=== PATIENT | female | born 1955 | race Two or more races ===

== ENCOUNTER 2024-08-21 11:57 | Emergency (ER) | payer SELFPAY ==
--- NOTE | 2024-08-21 12:18 | PC.NURSE ---
PT LEFT BEFORE BEING SEEN BY MEDICAL PROVIDER.
--- NOTE | 2024-08-21 17:56 | PD.EDRME ---
Rapid Medical Screening Exam RME Arrival date/time: 08/21/24 11:57 Chief Complaint: Abdominal Pain Time Seen by Provider: 08/21/24 12:14
== END 2024-08-21 12:18 | disposition left against medical advice (07) ==
LOC: SERX 12:30
PROVIDERS: Emergency Provider Emergency Medicine
DX: R10.9 Unspecified abdominal pain (principal); Z53.21 Procedure and treatment not carried out due to patient leaving prior to being seen by health care provider

== ENCOUNTER 2024-08-21 12:43 | Emergency (ER) | payer BC, SELFPAY ==
[2024-08-21 13:20] VITALS: BP 175/86; PULSE 67; RESP 20; TEMP 37.2; O2SAT 97
--- NOTE | 2024-08-21 13:21 | EDNOTE_ITS ---
<Statement entered by Olive Demarco MD - 08/22/24 14:50> As co-signing physician, I was present and available for consult prn. I concur with the plan and care as documented by the midlevel provider. ED Abdominal Pain RME/HPI General Chief Complaint: Abdominal Pain Stated complaint: ABD PAIN Time seen by provider: 08/21/24 13:15 Arrival date/time: 08/21/24 12:43 RME / HPI RME / HPI narrative: 69-year-old female patient came in for evaluation regarding left lower quadrant pain. Onset of symptoms for the last 3 days as left lower quadrant pain, described as dull ache, severity moderate. Patient denies any vomiting denies any diarrhea denies any constipation last bowel vomit today. Patient denies any fever also. Denies any other complaint. Abdominal surgery include exploratory laparotomy due to intestinal problem with she was young. Related Data Allergies Allergy/AdvReac Type Severity Reaction Status Date / Time acetaminophen (From Allergy Verified 08/21/24 11:59 Tylenol-Codeine) codeine (From Allergy Verified 08/21/24 11:59 Tylenol-Codeine) Review of Systems Review of Systems Narrative Review of Systems: Review of system reviewed and within normal limits except mentioned in HPI ED Exam Narrative Physical exam: VITAL SIGNS: Reviewed. GENERAL APPEARANCE: Alert and interactive, follows commands, no acute distress, HEAD AND FACE: Non-traumatic. ENT: PERRL, pink conjunctivitis, eyelid no trauma, Mucous membrane moist. NECK: Supple, nontender, no nuchal rigidity. CHEST: No tenderness, no crepitus, no paradoxical movement, no retractions. LUNGS: Clear, well ventilated, symmetric, no rales, no wheezing, no ronchi, no stridor, good breath sounds bilaterally. HEART: Regular rate, regular rhythm, no murmur, no gallops. ABDOMEN: Soft, positive bowel sounds, nondistended, no guarding, left lower quadrant tenderness,, no rebound, no masses, RECTAL: Deferred. GENITAL: Deferred. NEUROLOGICAL: Gross motor function intact sensory function intact, Appropriate for age. MUSCULOSKELETAL: low back nontender, full range of motion. EXTREMITIES: Nontender, full range of motion. SKIN: Color pink, dry, no rash, no lacerations, no abrasions, no contusions. LYMPHATICS: Deferred. Course Quality Measures none Orders Category Date Time Status CT Screening NOW Care 08/21/24 13:[address] abdomen pelvis wo con Stat Exams 08/21/24 15:56 Completed CBC Stat Lab 08/21/24 13:28 Completed Comprehensive Metabolic Panel Stat Lab 08/21/24 13:28 Completed Lipase Stat Lab 08/21/24 13:28 Completed Prothrombin Time with INR Stat Lab 08/21/24 13:28 Completed UA, C/S IF [Urinalysis, C/S if Indicated] Stat Lab 08/21/24 14:07 Completed Vital Signs Vital signs: Vital Signs Temperature 99.0 F 08/21/24 13:20 Pulse Rate 67 08/21/24 13:20 Respiratory Rate 20 08/21/24 13:20 Blood Pressure 175/86 H 08/21/24 13:20 Pulse Oximetry (%) 97 08/21/24 13:20 Oxygen Delivery Method Room Air 08/21/24 13:20 Abdominal Pain [facility] MDM Narrative MDM Narrative:: 69-year-old female patient came in for evaluation regarding left lower quadrant pain. Onset of symptoms for the last 3 days as left lower quadrant pain, described as dull ache, severity moderate. Patient denies any vomiting denies any diarrhea denies any constipation last bowel vomit today. Patient denies any fever also. Denies any other complaint. Abdominal surgery include exploratory laparotomy due to intestinal problem with she was young. Patient's workup today all came back normal. Including CT scan of the abdomen and pelvis. Results discussed with the patient and the family. Patient is prob ably having abdominal pas pain. Patient appears nontoxic and hemodynamically stable. Patient discharged home and instructed to follow-up with primary care provider in 24 to 48 hours. Instructed to return to the emergency department immediately if worsening of symptoms Patient data External records reviewed:: None Clinical information provided by:: none Social determinants that could affect healthcare access:: none Patient has the following chronic illnesses:: None How is presenting disease/condition affected by chronic disease/condition?: no chronic disease Evaluation data The following diagnostics were reviewed and interpreted by me:: lab results and radiology exam(s) Lab and/or radiology exams considered but not ordered:: None Interpretation Summary: See results in MDM Medications / Prescriptions Medications or Prescriptions considered but not ordered:: None Medication administrations:: None Consultations Consultation(s) initiated? (list below): No Consultation #1 (Physician, Specialty, Details): None Diagnosis Differential diagnosis abdominal pain: abdominal pain, constipation and small bowel obstruction Most likely diagnosis given after review of the tests above:: Abdominal pain Admission Indicated Admission indicated?: not indicated Admission Request Was there a request for admission?: No Disposition Plan Disposition Plan: Discharge Discharge Attestation Discharge Attestation: The patient and all family members were given an opportunity to ask questions and understood the discharge instructions. Discharge instructions specifically effects, indications for sooner follow up or return to the emergency department, and the expected course of current diagnosis. Patient condition: Stable Discharge Plan Plan Patient Disposition: HOME (Self Care) Disposition Comment: stable Prescriptions/Referrals Referrals: No Primary/Family,Physician [Primary Care Provider] - In 1 week Problem List Clinical Impression: Abdominal pain Patient/Caregiver Discharge Instructions Discharge Activity: activity as tolerated Education Materials: Abdominal Pain Additional Instructions: Thank you for the opportunity for serving you today. You are stable for discharged . You are advised to: Follow-up with your PCP in 1 to 2 days Return to ED for worsening of symptoms Increase oral fluids Increase fiber in the diet Print Language: [place] Islander Stand Alone Forms: Bhavna Award Info., Patient Portal Info Letter JOANNE/PAUL Supervising Physician JOANNE/PAUL Supervising Physician: MD Ella
[2024-08-21 13:43] LABS: Basophils # (Auto) 0.1 Thou/mm3 (0.0-0.2); Basophils % (Auto) 1 % (0-2.5); Eosinophils # (Auto) 0.4 Thou/mm3 (0.0-0.5); Eosinophils % (Auto) 4 % (0-10); Immature Granulocytes % (Auto) 0 % (0-0); Immature Granulocytes Auto 0.03 Thou/mm3 (0.00-0.00); Lymphocytes # (Auto) 4.2 Thou/mm3 (1.0-4.8); Lymphocytes % (Auto) 40 % (10-50); Mean Corpuscular HGB Conc 34.2 g/dl (31.0-37.0); Mean Corpuscular Volume 82 fL (80-100); Monocytes % (Auto) 9 % (0-12); Neutrophils # (Auto) 4.8 Thou/mm3 (1.8-7.7); Neutrophils % (Auto) 46 % (37-80); Nucleated Red Blood Cell % 0 /100 WBC (0); Platelet Count 260 Thou/mm3 (140-440); Red Blood Count 4.65 Miln/mm3 (4.00-5.20); White Blood Count 10.5 Thou/mm3 (3.6-11.0)
[2024-08-21 13:56] LABS: INR 0.9 (0.9-1.3); Prothrombin Time 10.4 Seconds (9.0-12.2)
[2024-08-21 14:00] LABS: Alanine Aminotransferase 13 U/L (10-49); Albumin, Serum 4.2 gm/dL (3.4-4.8); Albumin/Globulin Ratio 1.8 (1.2-2.2); Alkaline Phosphatase 100 U/L (46-116); Anion Gap 7 (7-16); Aspartate Amino Transferase 13 U/L (0-34); BUN/Creatinine Ratio 18 Ratio (12-20); Bilirubin,Total 0.5 mg/dL (0.3-1.2); Blood Urea Nitrogen 11 mg/dL (9-23); Calcium 9.2 mg/dL (8.3-10.6); Calcium (Corrected) 9.2 mg/dL (8.5-10.1); Carbon Dioxide 28.4 mMol/L (20.0-31.0); Chloride 105 mMol/L (98-107); Creatinine (Component) 0.6 mg/dL (0.6-1.3); Globulin 2.4 gm/dL (2.3-3.5); Glucose 110 mg/dL (74-106); Lipase 28 U/L (12-53); Osmolality,Calculated 279 (275-295); Potassium 4.4 mMol/L (3.4-5.1); Sodium 140 mMol/L (136-145); Total Protein 6.6 gm/dL (5.7-8.2); eGFR > 60 See Note
[2024-08-21 14:15] LABS: Collection Type, Urine Clean Catch
[2024-08-21 14:38] LABS: Bilirubin,Urine Negative (Negative); Blood,Urine Trace (Negative); Clarity,Urine Clear (Clear/Hazy); Color,Urine Lt-Yellow (Lt Yel-Yel); Culture Indicated,Urine Not Indicated; Glucose, Urine Negative (Negative); Ketones,Urine Negative (Negative); Leukocyte Esterase,Urine Negative (Negative); Nitrite,Urine Negative (Negative); PH,Urine 6.5 (5.0-7.0); Protein,Urine Negative (Neg - Trace); RBC,Urine 1 /hpf (0-3); Specific Gravity,Urine 1.012 (1.001-1.035); Squamous Epithelial Cell,Urine 1 /hpf (0-5); Urobilinogen,Urine Negative mg/dL (0.0-1.0); WBC,Urine 1 /hpf (0-5)
[2024-08-21 14:51] VITALS: BP 158/98; BP 182/84; PULSE 62; RESP 18; TEMP 36.7; O2SAT 100
--- NOTE | 2024-08-21 15:56 | XR_ITS ---
Examination: CT abdomen and pelvis without contrast. Coronal 3-D reconstructions. Sagittal 2-D reconstructions. Date and time of exam:August 21, 2024 1559 hrs. Indications: Right-sided abdominal pain beginning 3 days ago CTDI: vol (mGy): 8.69 DLP: (mGycm): 162 Technique: Axial images of the abdomen have been obtained, 3 mm slice thickness Intravenous contrast material has not been administered. Low dose protocols were performed. One or more of the following dose reduction techniques were used; automated exposure control, adjustment of the mA and/or KV according to patient size, use of iterative reconstruction technique. Findings: Fatty infiltration throughout the liver Liver is mildly irregular in contour Mild splenomegaly 13 cm Gallbladder is not visualized No extrahepatic biliary tract dilatation No pancreatic mass Normal adrenal glands. No renal or ureteral calculi, no hydronephrosis Aorta normal size. No bowel obstruction No pericecal inflammatory change Scattered colonic diverticulosis, no diverticulitis Atrophic uterus No adnexal mass No bladder mass or bladder calculi Moderate osteopenia Impression: Suspect primary hepatocellular disease Hepatomegaly 17 cm Mild splenomegaly, 13 cm No renal or ureteral calculi, no hydronephrosis No CT findings of appendicitis bowel obstruction or diverticulitis No bladder mass or bladder calculi
[2024-08-21 16:30] VITALS: BP 158/98; BP 169/85; PULSE 68; RESP 17; TEMP 36.8; O2SAT 99
[2024-08-21 18:20] VITALS: BP 148/76; BP 158/98; PULSE 76; RESP 18; TEMP 36.7; O2SAT 98
== END 2024-08-21 18:51 | disposition home or self-care (01) ==
PROVIDERS: Nurse Practitioner Family; Emergency Provider Emergency Medicine
DX: R10.32 Left lower quadrant pain (principal)
CPT/HCPCS: 36415; 74176; 80053; 81001; 83690; 85025; 85610; 99284

== ENCOUNTER 2024-10-24 23:00 | Emergency (ER) | payer BC, SELFPAY ==
[2024-10-24 23:02] VITALS: BMI 30.2
[2024-10-24 23:12] VITALS: BP 136/93; PULSE 70; RESP 18; TEMP 36.7; O2SAT 98
--- NOTE | 2024-10-24 23:14 | XR_ITS ---
Examination: PA chest single view TECHNIQUE: Upright PA chest single view Date and time: October 24, 2024 1151 hours INDICATIONS: Onset chest pain today FINDINGS: Early bibasilar pneumonia. Normal heart size Prominent osteopenia IMPRESSION: Early bibasilar pneumonia
--- NOTE | 2024-10-24 23:15 | PD.EDRME ---
Rapid Medical Screening Exam RME Arrival date/time: 10/24/24 23:00 This is a case of 69-year-old female who came into the emergency room due to chest pain and shortness of breath also with mosquito bite patient have history of stent in the past Chief Complaint: Chest Pain Time Seen by Provider: 10/24/24 23:13 Vital signs: Vital Signs Temperature 98.1 F 10/24/24 23:12 Pulse Rate 70 10/24/24 23:12 Respiratory Rate 18 10/24/24 23:12 Blood Pressure 136/93 H 10/24/24 23:12 Pulse Oximetry (%) 18 L 10/24/24 23:12 Oxygen Delivery Method Room Air 10/24/24 23:12
[2024-10-24 23:44] LABS: Basophils # (Auto) 0.1 Thou/mm3 (0.0-0.2); Basophils % (Auto) 0 % (0-2.5); Eosinophils # (Auto) 0.5 Thou/mm3 (0.0-0.5); Eosinophils % (Auto) 5 % (0-10); Hematocrit 35.4 % (36.0-46.0); Hemoglobin 12.4 g/dL (12.0-16.0); Immature Granulocytes % (Auto) 0 % (0-0); Immature Granulocytes Auto 0.03 Thou/mm3 (0.00-0.00); Lymphocytes # (Auto) 5.1 Thou/mm3 (1.0-4.8); Lymphocytes % (Auto) 45 % (10-50); Mean Corpuscular Hemoglobin 28.7 pg (25.0-35.0); Mean Corpuscular Volume 82 fL (80-100); Monocytes % (Auto) 9 % (0-12); Neutrophils # (Auto) 4.6 Thou/mm3 (1.8-7.7); Neutrophils % (Auto) 41 % (37-80); Nucleated Red Blood Cell % 0 /100 WBC (0); Platelet Count 200 Thou/mm3 (140-440); Red Blood Count 4.32 Miln/mm3 (4.00-5.20); White Blood Count 11.4 Thou/mm3 (3.6-11.0)
[2024-10-25 00:07] LABS: B-Type Natriuretic Peptide < 20 pg/mL (0-100)
[2024-10-25 00:11] LABS: Alanine Aminotransferase 10 U/L (10-49); Albumin/Globulin Ratio 1.9 (1.2-2.2); Alkaline Phosphatase 103 U/L (46-116); Anion Gap 11 (7-16); Aspartate Amino Transferase 15 U/L (0-34); BUN/Creatinine Ratio 20 Ratio (12-20); Bilirubin,Total 0.3 mg/dL (0.3-1.2); Blood Urea Nitrogen 10 mg/dL (9-23); Calcium 8.6 mg/dL (8.3-10.6); Calcium (Corrected) 8.6 mg/dL (8.5-10.1); Carbon Dioxide 26.8 mMol/L (20.0-31.0); Chloride 107 mMol/L (98-107); Creatinine (Component) 0.5 mg/dL (0.6-1.3); Estimated Creatinine Clearance 103.4 mL/min (>60); Globulin 2.1 gm/dL (2.3-3.5); Glucose 118 mg/dL (74-106); Osmolality,Calculated 288 (275-295); Potassium 3.7 mMol/L (3.4-5.1); Sodium 145 mMol/L (136-145); Total Protein 6.1 gm/dL (5.7-8.2); Troponin I < 0.002 ng/mL (0.0-0.045); eGFR > 60 See Note
[2024-10-25 00:41] LABS: Path Review Blood Smear Sent to Pathologist
[2024-10-25 02:21] LABS: Troponin I < 0.002 ng/mL (0.0-0.045)
--- NOTE | 2024-10-25 03:11 | PD.EDCHEST ---
ED Chest Pain RME/HPI General Chief Complaint: Chest Pain Stated Complaint: chest pain Time Seen by Provider: 10/24/24 23:13 Arrival date/time: 10/24/24 23:00 RME / HPI RME / HPI narrative: 10/24/24 23:00 This is a case of 69-year-old female who came into the emergency room due to chest pain and shortness of breath also with mosquito bite patient have history of stent in the past --------- Dr. Cervantes?s Main ED Evaluation: 69yo female with a history of HTN, CAD s/p 2 stents presents to the ED for a chief complaint of chest pain. Patient states she started having mid chest pain and shortness of breath at 2230. Patient reports associated tingling to her left arm. [id number] was concerned due to the patient feeling like she was going to pass out, so she brought her in for evaluation. Patient denies any N/V, sweating or any other associated symptoms. Record Searcher is located in [place]. Patient states her symptoms have resolved. Related Data Allergies Allergy/AdvReac Type Severity Reaction Status Date / Time acetaminophen (From Allergy Verified 10/24/24 23:07 Tylenol-Codeine) codeine (From Allergy Verified 10/24/24 23:07 Tylenol-Codeine) Review of Systems Review of Systems Systems Reviewed: All systems reviewed, normal except as documented ED Exam Narrative Physical exam: GENERAL APPEARANCE: alert and oriented x 4, well-developed, well-nourished, no acute distress VITALS: All vitals were reviewed and the pulse ox is 98% on room air, which is normal according to my interpretation. HEENT: Normocephalic, atraumatic; pupils equal, round, reactive to light; EOMI; mucous membranes pink, moist; oropharynx clear NECK: Supple LUNGS: CTABL; no wheezes, no rales, no rhonchi HEART: Regular rate, regular rhythm; normal S1, S2; no murmurs ABDOMEN: non distended; normal BS; soft, no tenderness, no guarding, no rebound; no masses, no organomegaly, no hernia BACK: no CVA tenderness EXTREMITIES: atraumatic; no edema NEUROLOGIC: awake; alert and oriented x4; cranial nerves II-XII grossly intact; no focal sensory or motor deficits PSYCHIATRIC: appropriate mood and affect SKIN: warm, dry, normal color; no rashes Course Course Course Narrative: CXR is ordered for determining the etiology of chest pain. Quality Measures none Orders Category Date Time Status EKG (ED ONLY) *Do not use* NOW Care 10/24/24 23:14 Completed EKG (ED Only) Stat Exams 10/24/24 23:14 Ordered XR chest 1V portable Stat Exams 10/24/24 23:14 Completed BNP [B-Type Natriuretic Peptide] Stat Lab 10/24/24 23:26 Completed CBC Stat Lab 10/24/24 23:26 Completed CMP [Comprehensive Metabolic Panel] Stat Lab 10/24/24 23:26 Completed Path Review Blood Smear Stat Lab 10/24/24 23:26 Completed Troponin I Stat Lab 10/24/24 23:26 Completed Troponin I Stat Lab 10/25/24 01:55 Completed Vital Signs Vital signs: Vital Signs Temperature 98.1 F 10/24/24 23:12 Pulse Rate 70 10/24/24 23:12 Respiratory Rate 18 10/24/24 23:12 Blood Pressure 136/93 H 10/24/24 23:12 Pulse Oximetry (%) 18 L 10/24/24 23:12 Oxygen Delivery Method Room Air 10/24/24 23:12 Chest Pain MDM Narrative MDM Narrative:: Scribe Attestation: 10/25/24 Paulette García am scribing for and in the presence of Dr. Cervantes. HEART score is 3, indicating the patient is at a low risk for a cardiac event. Patient's diagnostics are unremarkable. Patient is stable to be discharged home. She is encouraged to follow-up with her environmental services tech in the next few days. Patient verbalized understanding. Patient data External records reviewed:: [facility] previous records (Per chart review, patient has no relevant previous ED visits to this facility.) Clinical information provided by:: patient Social determinants that could affect healthcare access:: none Patient has the following chronic illnesses:: HTN, CAD s/p 2 stents How is presenting disease/condition affected by chronic disease/condition?: no chronic disease Evaluation data The following diagnostics were reviewed and interpreted by me:: lab results, radiology exam(s) and EKG tracing(s) Lab and/or radiology exams considered but not ordered:: none Interpretation Summary: CBC, CMP, BNP, as well as initial and repeat Troponins are unremarkable. CXR shows normal cardiac silhouette, normal sharp diaphragmatic edge, no infiltrates, normal costophrenic angles, according to my interpretation. EKG done at 0232, NSR, rate of 73, left axis deviation, no ectopy, no acute ischemia, according to my interpretation. Medications / Prescriptions Medications or Prescriptions considered but not ordered:: none Medication administrations:: none Consultations Consultation(s) initiated? (list below): No Diagnosis Chest Pain Differential Diagnosis: pneumothorax and other (STEMI, NSTEMI, angina, PE) Most likely diagnosis given after review of the tests above:: see clinical impression below Admission Indicated Admission indicated?: not indicated Admission Request Was there a request for admission?: No Disposition Plan Disposition Plan: Discharge Discharge Attestation Discharge Attestation: The patient and all family members were given an opportunity to ask questions and understood the discharge instructions. Discharge instructions specifically effects, indications for sooner follow up or return to the emergency department, and the expected course of current diagnosis. Patient condition: Stable Discharge Plan Plan Patient Disposition: HOME (Self Care) Discharge Disposition comment: Stable for discharge home Patient condition on transfer: Stable Prescriptions/Referrals Referrals: Rene Hair MD [Physician] - In 1 week Problem List Clinical Impression: Chest pain Patient/Caregiver Discharge Instructions Discharge Activity: activity as tolerated Education Materials: ED Chest Pain, Uncertain Cause Additional Instructions: Return to the emergency department if you have any worsening or any further medical problems and we will help you. Otherwise you should follow-up with your primary care doctor within the next several Print Language: Indonesian Stand Alone Forms: Bhavna Award Info., Patient Portal Info Letter
== END 2024-10-25 05:50 | disposition home or self-care (01) ==
PROVIDERS: Nurse Practitioner Family; Emergency Provider Emergency Medicine
DX: R07.9 Chest pain, unspecified (principal); R94.31 Abnormal electrocardiogram [ECG] [EKG]; I10 Essential (primary) hypertension; I25.10 Atherosclerotic heart disease of native coronary artery without angina pectoris; Z95.5 Presence of coronary angioplasty implant and graft
CPT/HCPCS: 36415; 71045; 80053; 83880; 84484; 85025; 93005; 99283